=== PATIENT | female | born 2000 ===

== ENCOUNTER 2019-11-11 22:14 | Emergency (ER) ==
[~2019-11-11] VITALS: Ht 165.1 cm; Wt 59.1 kg
== END 2019-11-11 22:54 | disposition home or self-care (01) ==
LOC: COL.ER 22:14
DX: S06.0X0A Concussion without loss of consciousness, initial encounter (principal); R40.2410 Glasgow coma scale score 13-15, unspecified time; W21.01XA Struck by football, initial encounter; Y92.89 Other specified places as the place of occurrence of the external cause